=== PATIENT | female | born 1960 | race Caucasian/White ===

== ENCOUNTER 2019-02-22 03:19 | Emergency (ER) | payer MEDICAID ==
[~2019-02-22] VITALS: Ht 152.4 cm; Wt 79.5 kg
[2019-02-22] MEDS ORDERED: DOXY100C43 PO (03:55)
[2019-02-22] MEDS ORDERED: PRED20TA PO (03:55)
[2019-02-22] MEDS ORDERED: ALBU18HF2 INH (03:55)
[2019-02-22 04:04] VITALS: BP 184/93
== END 2019-02-22 05:08 | disposition home or self-care (01) ==
LOC: ER 03:20
DX: J20.9 Acute bronchitis, unspecified (principal); R11.10 Vomiting, unspecified; Z79.899 Other long term (current) drug therapy
CPT/HCPCS: 71045; 99284